=== PATIENT | female | born 1985 | race Caucasian/White ===

== ENCOUNTER 2018-06-21 17:52 | Emergency (ER) | payer SELFPAY, OTHER ==
[2018-06-21] MEDS: SOD CHLORIDE 0.9% 1,000 ML IV (21:30)
[2018-06-21] MEDS: LORAZEPAM 2 MG INJ IV (22:05)
== END 2018-06-22 08:11 | disposition home or self-care (01) ==
LOC: E/R 17:52
DX: F15.10 Other stimulant abuse, uncomplicated (principal); Z59.0 Homelessness
CPT/HCPCS: 96374; 99284-25